=== PATIENT | female | born 1965 | race Caucasian/White ===

== ENCOUNTER 2020-12-26 12:56 | Emergency (ER) | payer OTHER, SELFPAY ==
[2020-12-26] VITALS (11 sets, daily range): BP systolic 102–160; BP diastolic 72–105; PULSE 78–90; RESP 14–22; TEMP 36.7; O2SAT 96–100
--- NOTE | 2020-12-26 13:01 | ECG_ITS ---
Measurements Intervals [place] Rate: 85 P: -3 MD: 113 QRS: 2 QRSD: 99 T: 10 QT: 371 QTc: 442 Interpretive Statements SINUS RHYTHM WITH SHORT MD INTERVAL BORDERLINE T WAVE ABNORMALITY- INFERIOR LEADS BORDERLINE ECG Electronically Signed On 12-26-2020 13:11:05 CDT by Julio Keita D.O.
[2020-12-26 13:21] LABS: Basophils Percent Auto 0.4 % (0.2-1.2); Eosinophils Absolute Auto 0.1 K/mm3 (0-0.3); Eosinophils Percent Auto 0.7 % (0-4.4); Hematocrit 45.4 % (37.0-47.0); Hemoglobin 15.1 g/dL (12.0-15.0); Immature Granulocyte Absolute 0.02 K/mm3 (0.00-0.031); Immature Granulocyte Percent A 0.2 % (0-0.5); Lymphocytes Absolute Auto 1.77 K/mm3 (0.9-3.2); Mean Corpuscular HGB Conc 33.3 g/dl (32-36); Mean Corpuscular Hemoglobin 32.3 pg (26-34); Mean Corpuscular Volume 97.2 fl (80-100); Mean Platelet Volume 10.7 fl (7.4-10.4); Monocytes Absolute Auto 0.6 K/mm3 (0.1-0.6); Monocytes Percent Auto 6.8 % (2.6-8.5); Neutrophils Absolute Auto 5.6 K/mm3 (1.3-6.7); Neutrophils Percent Auto 69.9 % (45.5-73.1); Platelet Count Result 230 k/mm3 (150-375); Red Blood Count 4.67 M/mm3 (4.2-5.4); Red Cell Distribution Width 12.4 % (11.5-14.5); White Blood Count 8.1 K/mm3 (4.5-10.0)
[2020-12-26 13:41] LABS: Anion Gap 14 mmol/L (8-16); Blood Urea Nitrogen 14 mg/dL (7-17); Calcium 9.6 mg/dL (8.4-10.2); Carbon Dioxide 18 mmol/L (22-30); Chloride 105 mmol/L (98-107); Estimated Glomerular Filt Rate > 60; Glucose 101 mg/dL (65-110); Potassium 4.1 mmol/L (3.4-5.0); Sodium 137 mmol/L (137-145)
[2020-12-26] MEDS: SODIUM CHLORIDE 0.9% IV 1,000 ML 999 ML IV CONT (14:41)
[2020-12-26] MEDS: FAMOTIDINE 20 MG/2 ML VIAL IV PUSH (14:41)
[2020-12-26] MEDS: LORazepam INJ (*CRX) 2 MG/ML VIAL 1 MG IV PUSH (14:46)
--- NOTE | 2020-12-26 14:57 | ED.GENADULT ---
HPI - General Adult General Chief complaint: Arrhythmia/Palpitations Stated complaint: light headed, heart racing Time Seen by Provider: 12/26/20 14:21 Source: patient, family and RN notes reviewed Mode of arrival: ambulatory Limitations: no limitations History of Present Illness HPI narrative: Patient is a 55-year-old female who presents to emergency department for evaluation of not feeling like herself today that began acutely has some associated dizziness and sensation of racing of her heart patient denies similar occurrence in the past notes that she has been under a lot of stress of late on arrival notes she still does not feel like herself but denies any chest pain shortness of breath vomiting diarrhea or recent illness patient is accompanied by her upon arrival Related Data Home Medications Medication Instructions Recorded Confirmed spironolactone PO 12/26/20 Allergies Allergy/AdvReac Type Severity Reaction Status Date / Time No Known Allergies Allergy Unverified 12/26/20 13:00 Review of Systems Review of Systems: All systems reviewed & are unremarkable except as noted in HPI and below PMFSH Past Medical History Medical History (Updated 12/26/20 @ 17:07 by Ty Johnson PA-C) Hypertension Social History Social History (Updated 12/26/20 @ 15:01 by Ty Johnson PA-C) Smoking status: Never smoker Exam Narrative: Exam Narrative: GENERAL: Well-appearing, well-nourished, and in no acute distress. HEAD: Normocephalic, atraumatic. EYES: PERRLA and EOMI. ENT: Nares clear, no rhinorrhea or epistaxis. Mucous membranes moist. CHEST: Clear to auscultation. No respiratory distress. No wheezes rales or rhonchi HEART: Regular rate and rhythm. No murmur heard. Normal peripheral pulses. ABDOMEN: Soft, nontender, nondistended. EXTREMITIES: Normal range of motion. No edema. SKIN: Warm, dry, no rash. NEURO: No focal deficits. Alert and oriented x3. Cranial nerves II through XII grossly intact PSYCH: Normal mood and affect. Course Course Emergency Course: Patient in the room no distress aware of case findings treatment plan and diagnosis felt appropriate for outpatient reevaluation feeling fine at this time hydrated in the emergency department normal vital signs provided with reasons to return Vital Signs Vital signs: Vital Signs Temperature 98.1 F 12/26/20 13:11 Pulse Rate 90 12/26/20 13:11 Respiratory Rate 16 12/26/20 13:11 Blood Pressure 150/83 H 12/26/20 13:11 Pulse Oximetry 98 12/26/20 13:11 Temperature 98.1 F 12/26/20 13:11 Pulse Rate 84 12/26/20 15:15 Respiratory Rate 15 12/26/20 15:15 Blood Pressure 132/105 H 12/26/20 14:31 Pulse Oximetry 100 12/26/20 15:15 Medical Decision Making MDM Narrative Medical decision making narrative: Patients dizziness is resolved with no focal neurological deficits on exam. Subarachnoid hemorrhage is felt to be unlikey at this time. There is no history of fever, and neck is supple without meningismus, making meningitis unlikely. No traumatic history or signs of trauma on exam. No risk factors for CVA, risk factors reviewed. NO ocular signs on exam and in history to suggest acute glaucoma. Patients dizziness is felt to be a reasonable candidate for outpatient evaluation Vital Signs Vital Signs: Vital Signs Temperature 98.1 F 12/26/20 13:11 Pulse Rate 90 12/26/20 13:11 Respiratory Rate 16 12/26/20 13:11 Blood Pressure 150/83 H 12/26/20 13:11 Pulse Oximetry 98 12/26/20 13:11 Temperature 98.1 F 12/26/20 13:11 Pulse Rate 84 12/26/20 15:15 Respiratory Rate 15 12/26/20 15:15 Blood Pressure 132/105 H 12/26/20 14:31 Pulse Oximetry 100 12/26/20 15:15 Lab Data Result diagrams: 12/26/20 13:09 12/26/20 13:09 Labs: Lab Results 12/26/20 12/26/20 12/26/20 Range/Units 13:09 13:09 14:45 WBC 8.1 (4.5-10.0) K/mm3 RBC 4.67 (4.2-5.4) M/mm3 H
[2020-12-26 15:13] LABS: Troponin I < 0.012 ng/mL (0.000-0.034)
[2020-12-26 16:04] LABS: Add Urine Microscopic? NO; Appearance Urine Clear (Clear); Bilirubin Urine Negative (Negative); Blood Urine Negative (Negative); Color Urine Colorless (Yellow); Glucose Urine UA Negative (Negative); Ketones Urine Negative (Negative); Leukocyte Esterase Ur Negative LEU/UL (Negative); Nitrate Urine Negative (Negative); Protein Urine Negative (Negative); Urobilinogen Urine Negative mg/dL (<2.0)
[2020-12-26 16:19] LABS: Specific Grav Ur 1.004 (1.001-1.035)
== END 2020-12-26 17:19 | disposition home or self-care (01) ==
PROVIDERS: Emergency Medicine; Emergency Medicine Emergency Medical Services; Emergency Provider Emergency Medicine
DX: R42 Dizziness and giddiness (principal); I10 Essential (primary) hypertension
CPT/HCPCS: 36415; 80048; 81003; 84443; 84484; 85025; 93005; 96361; 96374; 96375; 99284; J2060; J7030